=== PATIENT | male | born 1945 | race Caucasian/White ===

== ENCOUNTER 2017-10-18 17:20 | Emergency (ER) | payer MEDICARE, BC ==
[2017-10-18] MEDS ORDERED: Aspirin 81 MG Tab.Chew PO ONE (18:22)
--- NOTE | 2017-10-18 19:16 | EDM.PDOC ---
ED HPI GENERAL MEDICAL PROBLEM - General Chief Complaint: Respiratory Problem Stated Complaint: SOB Time Seen by Provider: 10/18/17 18:05 Source of Information: Reports: Patient, Family History Limitations: Reports: No Limitations - History of Present Illness INITIAL COMMENTS - FREE TEXT/NARRATIVE: pt arrived stating he is having burning chest when he ambulates. He is very sob with activity. He has noted black and tarry stools recently. He has not been taking any of his meds. He has had a previous ID. He has had open heart surgery. He has previously been on asa but has stopped that. He recently has noted black tarry stool. Onset: Gradual, Other ( This has been going on for several days. ) Duration: Day(s):, Getting Worse Location: Reports: Chest, Abdomen Associated Symptoms: Reports: Chest Pain, Diaphoresis, Shortness of Breath, Weakness, Other ( black tarry stools. ) Chest Pain Score (Numeric/FACES): 5 - Related Data Allergies Allergy/AdvReac Type Severity Reaction Status Date / Time Iylxcxs-Run-Ifg Reductase Allergy Muscle Verified 10/18/17 18:25 Inhibitor Aches Home Meds: Home Meds Aspirin 1 tab PO ASDIRECTED 10/18/17 [History] NK [No Known Home Meds] 10/18/17 [History] Past Medical History Cardiovascular History: Reports: CAD, High Cholesterol, Hypertension Musculoskeletal History: Reports: Fracture Endocrine/Metabolic History: Reports: Diabetes, Type II - Past Surgical History HEENT Surgical History: Reports: Tonsillectomy Cardiovascular Surgical History: Reports: Coronary Artery Bypass GI Surgical History: Reports: Appendectomy Social & Family History - Tobacco Use Smoking Status *Q: Former Smoker Used Tobacco, but Quit: Yes Month Tobacco Last Used: 0 Tobacco Use Comment: quit smoking in 1990 - Recreational Drug Use Recreational Drug Use: No ED ROS GENERAL - Review of Systems Review Of Systems: See Below Constitutional: Reports: Fatigue, Diaphoresis HEENT: Reports: No Symptoms Respiratory: Reports: Shortness of Breath Cardiovascular: Reports: Chest Pain, Other ( burning chest pain with activity) Endocrine: Reports: No Symptoms GI/Abdominal: Reports: Melena, Other (Pt has noted black tarry stools. ) : Reports: No Symptoms Musculoskeletal: Reports: No Symptoms Skin: Reports: No Symptoms Neurological: Reports: No Symptoms Psychiatric: Reports: Anxiety ED EXAM, GENERAL - Physical Exam Exam: See Below Free Text/Narrative:: Pt arrived with a history of marked sob. He has been having burning chest pain all day when ever he moves around. He is not having pain at this time. He has an irregular heart rhythm--atrial fib which is new for him according to the family. He has recently noted that his stools are black and tarry . He is markedly sob with any activity. Exam Limited By: Respiratory Distress General Appearance: Alert, No Apparent Distress, Anxious, Other ( At rest the pt is painfree and he is breathing k) Ears: Normal TMs Nose: Normal Inspection Throat/Mouth: Normal Inspection Head: Atraumatic Neck: Normal Inspection Respiratory/Chest: No Respiratory Distress, Other ( He is very sob with activty. ) Cardiovascular: Irregularly Irregular, Other ( rate is 109. ) GI/Abdominal: Soft, Non-Tender (Male) Exam: No Hernia Rectal (Males) Exam: Other ( No masses stool is very black. ) Back Exam: Normal Inspection Extremities: Normal Inspection Neurological: Alert, Oriented, Normal Cognition Psychiatric: Normal Affect Course - Vital Signs Last Recorded V/S: Last Vital Signs Temp 37 C 10/18/17 20:27 Pulse 107 H 10/18/17 20:27 Resp 12 10/18/17 20:27 BP 191/77 H 10/18/17 20:27 Pulse Ox 100 10/18/17 19:30 - Orders/Labs/Meds Orders: Active Orders 24 hr Category Date Time Status EKG Documentation Completion [RC] ASDIRECTED Care 10/18/17 18:18 Active Chest 1V Frontal [CR] Stat Exams 10/18/17 18:18 Taken PATIENT RETYPE [BBK] Stat Lab 10/18/17 18:20 Results RED BLOOD CELLS LP [BBK] Stat Lab 10/18/17 18:20 Results TYPE AND SCREEN [BBK] Stat Lab 10/18/17 18:20 Results UA W/MICROSCOPIC [URIN] Urgent Lab 10/18/17 18:15 Uncollected Transfuse Red Blood Cells [COMM] Urgent Oth 10/18/17 19:24 Ordered EKG 12 Lead [EK] Routine Ther 10/18/17 18:18 Ordered Labs: Laboratory Tests 10/18/17 10/18/17 10/18/17 Range/Units 18:20 18:24 18:24 WBC 6.9 (4.5-11.0) K/uL RBC 2.22 L (4.30-5.90) M/uL Hgb 5.7 L* (12.0-15.0) g/dL Hct 18.9 L (40.0-54.0) % MCV 85 (80-98) fL MCH 26 L (27-31) pg MCHC 30 L (32-36) % Plt Count 252 (150-400) K/uL Neut % (Auto) 64 (36-66) % Lymph % (Auto) 16 L (24-44) % Calhoun % (Auto) 17 H (2-6) % Eos % (Auto) 3 (2-4) % Baso % (Auto) 1 (0-1) % Sodium (140-148) mmol/L Potassium (3.6-5.2) mmol/L Chloride (100-108) mmol/L Carbon Dioxide (21-32) mmol/L Anion Gap (5.0-14.0) mmol/L BUN (7-18) mg/dL Creatinine (0.8-1.3) mg/dL Est Cr Clr Drug Dosing mL/min Estimated GFR (MDRD) (>60) Glucose (74-106) mg/dL Calcium (8.5-10.1) mg/dL Total Bilirubin (0.2-1.0) mg/dL AST (15-37) U/L ALT (12-78) U/L Alkaline Phosphatase (46-116) U/L Creatine Kinase (39-308) U/L Troponin I 1.064 H* (0.000-0.056) ng/mL Total Protein (6.4-8.2) g/dL Albumin (3.4-5.0) g/dL Globulin (2.3-3.5) g/dL Albumin/Globulin Ratio (1.2-2.2) Blood Type O NEGATIVE Gel Antibody Screen Negative Crossmatch See Detail 10/18/17 Range/Units 18:24 WBC (4.5-11.0) K/uL RBC (4.30-5.90) M/uL Hgb (12.0-15.0) g/dL Hct (40.0-54.0) % MCV (80-98) fL MCH (27-31) pg MCHC (32-36) % Plt Count (150-400) K/uL Neut % (Auto) (36-66) % Lymph % (Auto) (24-44) % Calhoun % (Auto) (2-6) % Eos % (Auto) (2-4) % Baso % (Auto) (0-1) % Sodium 133 L (140-148) mmol/L Potassium 3.2 L (3.6-5.2) mmol/L Chloride 100 (100-108) mmol/L Carbon Dioxide 20 L (21-32) mmol/L Anion Gap 16.2 H (5.0-14.0) mmol/L BUN 12 (7-18) mg/dL Creatinine 0.9 (0.8-1.3) mg/dL Est Cr Clr Drug Dosing 85.08 mL/min Estimated GFR (MDRD) > 60 (>60) Glucose 214 H (74-106) mg/dL Calcium 7.7 L (8.5-10.1) mg/dL Total Bilirubin 1.2 H (0.2-1.0) mg/dL AST 89 H (15-37) U/L ALT 40 (12-78) U/L Alkaline Phosphatase 119 H (46-116) U/L Creatine Kinase 119 (39-308) U/L Troponin I (0.000-0.056) ng/mL Total Protein 6.9 (6.4-8.2) g/dL Albumin 2.2 L (3.4-5.0) g/dL Globulin 4.7 H (2.3-3.5) g/dL Albumin/Globulin Ratio 0.5 L (1.2-2.2) Blood Type Gel Antibody Screen Crossmatch Meds: Medications Discontinued Medications Generic Name Dose Route Start Last Admin Trade Name Freq PRN Reason Stop Dose Admin Aspirin 324 mg 10/18/17 18:22 Aspirin PO 10/18/17 18:23 ONETIME ONE - Re-Assessments/Exams Free Text/Narrative Re-Assessment/Exam: 10/18/17 19:35 pt arrived with a history of burning chest pain and sob. He has had black tarry stools. His hg was 5.7. He has an elevated tropin at 1.06. He has an ekg which shows atrial fib and some st changes. He also has a inferior infarct unknown date. pt will be transfered for cardiology. Departure - Departure Time of Disposition: 21:05 Disposition: DC/Tfer to Acute Hospital 02 Condition: Fair Clinical Impression: GI bleeding, Anemia, Acute ID, Atrial fibrillation - Discharge Information Referrals: PCP,None [Primary Care Provider] - Forms: ED Department Discharge Care Plan Goals: To [facility]. - My Orders Last 24 Hours: My Active Orders 10/18/17 18:15 UA W/MICROSCOPIC [URIN] Urgent 10/18/17 18:18 EKG Documentation Completion [RC] ASDIRECTED Chest 1V Frontal [CR] Stat EKG 12 Lead [EK] Routine 10/18/17 18:20 PATIENT RETYPE [BBK] Stat RED BLOOD CELLS LP [BBK] Stat TYPE AND SCREEN [BBK] Stat 10/18/17 19:24 Transfuse Red Blood Cells [COMM] Urgent - Assessment/Plan Last 24 Hours: My Active Orders 10/18/17 18:15 UA W/MICROSCOPIC [URIN] Urgent 10/18/17 18:18 EKG Documentation Completion [RC] ASDIRECTED Chest 1V Frontal [CR] Stat EKG 12 Lead [EK] Routine 10/18/17 18:20 PATIENT RETYPE [BBK] Stat RED BLOOD CELLS LP [BBK] Stat TYPE AND SCREEN [BBK] Stat 10/18/17 19:24 Transfuse Red Blood Cells [COMM] Urgent
--- NOTE | 2017-10-19 10:48 | CR ---
Portable chest Comparison: January 2011. Findings: Sternal wires are demonstrated. Several of the superior wires are disrupted. The heart and vascular structures are unchanged. There is evidence of a small calcified granuloma of the right lowe r lobe. There are no infiltrates or effusions. Impression: 1. No acute findings.
== END 2017-10-18 21:18 ==
LOC: JP.ED 17:20
DX: I21.9 Acute myocardial infarction, unspecified (principal); I48.91 Unspecified atrial fibrillation; K92.2 Gastrointestinal hemorrhage, unspecified; D64.9 Anemia, unspecified; I10 Essential (primary) hypertension; I25.10 Atherosclerotic heart disease of native coronary artery without angina pectoris; E78.00 Pure hypercholesterolemia, unspecified; E11.9 Type 2 diabetes mellitus without complications; Z95.5 Presence of coronary angioplasty implant and graft; Z87.891 Personal history of nicotine dependence; Z79.82 Long term (current) use of aspirin; Z88.8 Allergy status to other drugs, medicaments and biological substances
CPT/HCPCS: 36415; 36430; 71010; 80053; 82272; 82550; 84484; 85025; 86850; 86900; 86901; 86920; 86922; 93005; 99285; P9016; 93010; 99284